=== PATIENT | male | born 1980 | race Caucasian/White ===

== ENCOUNTER 2017-03-16 21:18 | Observation (INO) | payer BC, MEDICAID, OTHER ==
[~2017-03-16] VITALS: Ht 175.3 cm; Wt 70.0 kg
[~2017-03-16 21:18] MED LIST: ACET325S8 PR; DICL-86 PO; IBUP100S PO; TRAM50 PO
[2017-03-16 21:19] VITALS: BP 156/96; PULSE 102; RESP 16; TEMP 99; O2SAT 99
[2017-03-16] MEDS ORDERED: AMIT100T2 PO (22:12)
[2017-03-16] MEDS ORDERED: GABA600T PO (22:12)
[2017-03-16] MEDS ORDERED: CLON.5 PO (22:12)
[2017-03-16] MEDS ORDERED: TRAZ1TAB14 PO (22:12)
[2017-03-16] MEDS ORDERED: LEVE500 PO (22:12)
[2017-03-16] MEDS ORDERED: MORPHINE SULFATE 4 MG/ML INJ IV PUSH ONE (22:30)
[2017-03-16 22:57] LABS: AUTOMATED NEUTROPHIL # 6.2 TH/MM3 (1.8-7.7); BASOPHIL # 0.1 TH/MM3 (0-0.2); BASOPHIL % 0.6 % (0.0-2.0); EOSINOPHIL # 0.1 TH/MM3 (0-0.4); EOSINOPHIL % 1.5 % (0.0-4.0); HEMATOCRIT 35.9 % (39.0-51.0); HEMO FLAGS DIFF FINAL; LYMPH % 20.6 % (9.0-44.0); LYMPHOCYTE # 1.9 TH/MM3 (1.0-4.8); MEAN CELL VOLUME 83.9 FL (80.0-100.0); MEAN CORPUSCULAR HEMOGLOBIN 29.3 PG (27.0-34.0); MEAN CORPUSCULAR HGB CONC 34.9 % (32.0-36.0); MONO % 8.8 % (0.0-8.0); NEUT % 68.5 % (16.0-70.0); PLATELET COUNT 299 TH/MM3 (150-450); RED BLOOD COUNT 4.28 MIL/MM3 (4.50-5.90); WHITE BLOOD COUNT 9.1 TH/MM3 (4.0-11.0)
[2017-03-16 23:04] LABS: BLOOD, URINE NEG (NEG); COMMENT (UR) CULT NOT INDICATED; CULTURE IF INDICATED CULT NOT INDICATED; GLUCOSE,URINE NEG (NEG); KETONE, URINE NEG (NEG); MUCUS URINE FEW /lpf (OCC); NITRITE,URINE NEG (NEG); PH, URINE 6.5 (5.0-8.5); URINE COLOR YELLOW (YELLW/STRAW)
[2017-03-16 23:09] LABS: APTT (PATIENT) 28.8 SEC (24.3-30.1); PROTHROMBIN TIME - PATIENT 10.1 SEC (9.8-11.6)
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
[2017-03-16 23:17] LABS: BICARBONATE 27.4 MEQ/L (21.0-32.0); POTASSIUM 4.2 MEQ/L (3.5-5.1)
--- NOTE | 2017-03-16 23:24 | RADRPT ---
EXAM DATE/TIME: 03/16/2017 22:34 [facility] COMPARISON: No previous studies available for comparison. INDICATIONS : Testicular pain. MEDICAL HISTORY : Seizures. Anxiety. SURGICAL HISTORY : Tonsillectomy. Double hernia repair. ENCOUNTER: Initial ACUITY: 1 week PAIN SCORE: 8/10 LOCATION: Bilateral testicles. MEASUREMENTS: RIGHT TESTICLE: 4.8 x 3.1 x 2.5cm LEFT TESTICLE: 4.8 x 3.0 x 2.3cm FINDINGS: RIGHT TESTICLE: Homogeneous echotexture without intra or extratesticular mass. Blood flow is symmetric and within no rmal limits. No hydrocele or varicocele. Epididymis is within normal limits. LEFT TESTICLE: Homogeneous echotexture without intra or extratesticular mass. Blood flow is symmetric and within no rmal limits. No hydrocele or varicocele. Epididymis is within normal limits. SCROTUM: Within normal limits. CONCLUSION: Normal scrotal ultrasound. No abnormality is identified to explain the pain. Juan Nair MD on March 16, 2017 at 23:21 Board Certified Radiologist. This report was verified electronically.
[2017-03-17 01:00] LABS: CHLAMYDIA PCR NOT DETECTED (NOT DETECT); NEISSERIA PCR NOT DETECTED (NOT DETECT)
--- NOTE | 2017-03-17 01:26 | RADRPT ---
EXAM DATE/TIME: 03/17/2017 00:10 [facility] COMPARISON: No previous studies available for comparison. INDICATIONS : Pain in penis and swelling in scrotum for 3 days after injury. MEDICAL HISTORY : Seizures. SURGICAL HISTORY : Umbilical hernia repair. Tonsillectomy. Bilateral broken arms. ENCOUNTER: Subsequent ACUITY: 3 day PAIN SCORE: 9/10 LOCATION: scrotum. TECHNIQUE: Multiplanar, multisequence magnetic resonance imaging of the pelvis was performed. FINDINGS: At the left base of the pendulous portion of the penis there is a focal disruption of the left latera l aspect of the tunica albuginea. The defect measures approximately 11 mm. There is intermediate T2 a nd heterogeneous T1 signal extending around the corpus cavernosa and abutting the corpus spongiosum i n this area likely representing a hematoma contained by the surrounding fascia. It extends from the 1 : 00 to 6:00 position. The right corpus cavernosa appears intact. Corpus spongiosum does not appear inv olved. Testicles are visualized and demonstrate homogeneous T2 hyperintense signal without a mass. There is trace fluid in the scrotum bilaterally. Prostate gland and bladder demonstrate no abnormality. CONCLUSION: 1. There is focal disruption of the left tunica albuginea of the corpus cavernosum at the base of the penis. The defect measures approximately 11 mm. 2. There is an adjacent hematoma extending around the left corpus cavernosum likely contained by the surrounding fascia. Right corpus cavernosa and corpus spongiosum appear intact. Juan Nair MD on March 17, 2017 at 1:19 Board Certified Radiologist. This report was verified electronically.
[2017-03-17] MEDS ORDERED: SODIUM CHLOR 0.9% 1000 ML INJ 1,000 ML IV SCH (02:33)
[2017-03-17] MEDS ORDERED: MAGNESIUM HYDROXIDE SUSP 30 ML CUP PO PRN (02:45)
[2017-03-17] MEDS ORDERED: SODIUM CHLORIDE 0.9% FLUSH 10 ML FLUSH IV FLUSH PRN (02:45)
[2017-03-17] MEDS ORDERED: LACTULOSE SYRUP 20 GM/30 ML CUP PO PRN (02:45)
[2017-03-17] MEDS ORDERED: ONDANSETRON HCL 4 MG/2 ML VIAL IVP PRN (02:45)
[2017-03-17] MEDS ORDERED: ACETAMINOPHEN 325 MG TAB PO PRN (02:45)
[2017-03-17] MEDS ORDERED: BISACODYL 10 MG SUPP RECTAL PRN (02:45)
[2017-03-17] MEDS ORDERED: SENNOSIDES 8.6 MG TAB PO PRN (02:45)
[2017-03-17] MEDS ORDERED: ACETAMINOPHEN/HYDROcodone 325 MG/5 MG TAB PO PRN (02:45)
[2017-03-17] MEDS: MORPHINE SULFATE 4 MG/ML INJ IV PUSH PRN ×2 (03:19→08:15)
[2017-03-17 03:25] VITALS: BP 123/81; PULSE 85; RESP 16; O2SAT 99
[2017-03-17 04:08] VITALS: BP 136/86; PULSE 108; RESP 16; TEMP 98.6; O2SAT 100
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
[2017-03-17] MEDS ORDERED: GABAPENTIN 400 MG CAP PO SCH (09:00)
[2017-03-17] MEDS ORDERED: levETIRAcetam 500 MG TAB PO SCH (09:00)
[2017-03-17] MEDS ORDERED: clonazePAM 0.5 MG TAB PO SCH (09:00)
[2017-03-17] MEDS ORDERED: SODIUM CHLORIDE 0.9% FLUSH 10 ML FLUSH IV FLUSH SCH (09:00)
[2017-03-17] MEDS ORDERED: DOCUSATE SODIUM 50 MG/SENNA 8.6 MG TAB PO SCH (09:00)
[2017-03-17 09:12] VITALS: BP 141/79; PULSE 100; RESP 20; TEMP 97; O2SAT 97
--- NOTE | 2017-03-17 10:00 | PD.CONS ---
HPI Service Urology Consult Requested By Reason for Consult Penile pain; Fracture? Primary Care Physician No Primary Care Physician Diagnosis: (1) Penile fracture ICD Code: S39.840A - Fracture of corpus cavernosum penis, initial encounter (2) HTN (hypertension) ICD Code: I10 - Essential (primary) hypertension (3) Seizure disorder ICD Code: G40.909 - Epilepsy, unspecified, not intractable, without status epilepticus (4) Tobacco abuse ICD Code: Z72.0 - Tobacco use History of Present Illness 36-year-old male admitted for penile pain with concern for possible penile fracture. Patient reports that 3 nights ago he was engaging in sexual intercourse with his female partner where she was on top. He reports his penis came out and when she came down it hit her hip and had significant pain. He denies hearing any type of popping noise. His erection however remained and he finished the sexual intercourse at that time. Patient reports shortly after this he had some soreness to the penis however no significant swelling. He then went to work for the next 2 days without issue. 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 However last night after he came home from work he noticed significant bruising in his scrotum along with swelling. He denies any difficulty in voiding. It is unclear if he has been able to achieve an erection since the event however he reports erections are painful and he has not engaged in any further sexual activity. No hematuria, no dysuria. No fevers chills nausea or vomiting. Review of Systems ROS Limitations: Clinical Condition Constitutional: DENIES: Fever Endocrine: DENIES: Heat/cold intolerance Eyes: DENIES: Blurred vision Ears, nose, mouth, throat: DENIES: Hearing loss Respiratory: DENIES: Cough Cardiovascular: DENIES: Chest pain Gastrointestinal: DENIES: Abdominal pain Genitourinary: DENIES: Sexual dysfunction, Urinary frequency, Hematuria, Dysuria, Penile Discharge Musculoskeletal: DENIES: Joint pain Hematologic/lymphatic: COMPLAINS OF: Bruising Neurologic: DENIES: Headache Psychiatric: DENIES: Anxiety Except as stated in HPI: all other systems reviewed are Neg Past Family Social History Past Medical History Anxiety, Seizure Disorder and Tobacco Abuse Past Surgical History Hernia Repair, Tonsillectomy Reported Medications Reported Meds & Active Scripts Active Bactrim DS (Sulfamethoxazole-Trimethoprim) 800-160 Mg Tab 1 Tab PO BID Reported Klonopin (Clonazepam) 0.5 Mg Tab 0.5 Mg PO BID Gabapentin 600 Mg Tab 1,200 Mg PO TID Amitriptyline (Amitriptyline HCl) 100 Mg Tab 100 Mg PO HS Keppra (Levetiracetam) 500 Mg Tab 1,000 Mg PO TID Allergies: Coded Allergies: doxycycline (Unverified Allergy, Mild, HIVES, 03/16/17) minocycline (Unverified Allergy, Mild, HIVES, 03/16/17) penicillin G (Unverified Allergy, Mild, HIVES, 03/16/17) tigecycline (Unverified Allergy, Mild, HIVES, 03/16/17) Family History Family history Reviewed and noncontributory to present illness. No h/o DM or CAD Social History One to 2 drinks daily. Smokes 1/2ppd. Negative for drugs Physical Exam Vital Signs Date Time Temp Pulse Resp B/P (MAP) Pulse Ox O2 Delivery O2 Flow Rate FiO2 03/17/17 09:12 97.0 100 20 141/79 (99) 97 03/17/17 04:08 98.6 108 16 136/86 (103) 100 03/17/17 03:39 03/17/17 03:25 85 16 123/81 (95) 99 Room Air 03/16/17 21:19 99.0 102 16 156/96 (116) 99 Room Air Physical Exam GENERAL: This is a well-nourished, well-developed patient, in no apparent distress. SKIN: No rashes, ecchymoses or lesions. Cool and dry. HEAD: Atraumatic. Normocephalic. No temporal or scalp tenderness. EYES: Extraocular motions intact. No scleral icterus. No injection or drainage. ENT: Nose without bleeding, purulent drainage Airway patent. NECK: Trachea midline. No JVD or lymphadenopathy. CARDIOVASCULAR: Normal pulses RESPIRATORY: Nonlabored GASTROINTESTINAL: Abdomen soft, non-tender, nondistended. No hepato-splenomegaly , or palpable masses. No guarding. GENITOURINARY: Circumcised phallus without any edema or swelling of the entire penile shaft. There is some mild swelling of the scrotum with significant ecchymosis and bruising throughout the entire scrotum. Some mild tenderness noted in the inferior portion of the scrotum more so on the right testicle, however bilateral testicles palpable and normal. There is no tenderness along the entire shaft the penis, however there is some mild tenderness in the left inferior base of the penis. MUSCULOSKELETAL: Extremities without clubbing, cyanosis, or edema. NEUROLOGICAL: Awake and alert. . Motor and sensory grossly within normal limits. Normal speech. Lab results reviewed: Yes Laboratory Tests Test 03/16/17 22:30 03/16/17 22:40 Urine Color YELLOW Urine Turbidity CLEAR Urine pH 6.5 Urine Specific [place] 1.012 Urine Protein NEG Urine Glucose (UA) NEG Urine Ketones NEG Urine Occult Blood NEG Urine Nitrite NEG Urine Bilirubin NEG Urine Urobilinogen LESS THAN 2.0 Urine Leukocyte Esterase NEG Urine RBC LESS THAN 1 Urine WBC LESS THAN 1 Urine Mucus FEW Microscopic Urinalysis Comment CULT NOT INDICATED Chlamydia trachomatis DNA (PCR) NOT DETECTED Neisseria gonorrhoeae DNA (PCR) NOT DETECTED White Blood Count 9.1 Red Blood Count 4.28 Hemoglobin 12.5 Hematocrit 35.9 Mean Corpuscular Volume 83.9 Mean Corpuscular Hemoglobin 29.3 Mean Corpuscular Hemoglobin Concent 34.9 Red Cell Distribution Width 13.0 Platelet Count 299 Mean Platelet Volume 7.0 Neutrophils (%) (Auto) 68.5 Lymphocytes (%) (Auto) 20.6 Monocytes (%) (Auto) 8.8 Eosinophils (%) (Auto) 1.5 Basophils (%) (Auto) 0.6 Neutrophils # (Auto) 6.2 Lymphocytes # (Auto) 1.9 Monocytes # (Auto) 0.8 Eosinophils # (Auto) 0.1 Basophils # (Auto) 0.1 CBC Comment DIFF FINAL Differential Comment Prothrombin Time 10.1 Prothromb Time International Ratio 1.0 Activated Partial Thromboplast Time 28.8 Blood Urea Nitrogen 9 Creatinine 0.74 Random Glucose 73 Calcium Level 8.7 Sodium Level 136 Potassium Level 4.2 Chloride Level 103 Carbon Dioxide Level 27.4 Anion Gap 6 Estimat Glomerular Filtration Rate 118 Result Diagram: 03/16/170 03/16/172239 Personally reviewed images: Yes Imaging Last Impressions Pelvis MRI 03/17/17 0000 Signed Impressions: Service Date/Time: Friday, March 17, 2017 00:10 - CONCLUSION: 1. There is focal disruption of the left tunica albuginea of the corpus cavernosum at the base of the penis. The defect measures approximately 11 mm. 2. There is an adjacent hematoma extending around the left corpus cavernosum likely contained by the surrounding fascia. Right corpus cavernosa and corpus spongiosum appear intact. Juan Nair MD Scrotum Ultrasound 03/16/17 0000 Signed Impressions: Service Date/Time: Thursday, March 16, 2017 22:34 - CONCLUSION: Normal scrotal ultrasound. No abnormality is identified to explain the pain. Juan Nair MD Assessment and Plan Problem List: (1) Penile fracture ICD Code: S39.840A - Fracture of corpus cavernosum penis, initial encounter Assessment and Plan Physical exam is not typical for penile fracture. History of the injury is typical event for a penile fracture, however a true complete penile fracture would result in immediate detumescence with immediate significant penile swelling. This was not the case here. However MRI of the pelvis noted a small approximately 1 cm left corporal defect with some hematoma noted around this. Personal review of the MRI did not identify the location of this defect. We discussed penile fracture in great detail. Given the history and the length of time since the injury and the relatively small defect, surgical intervention at this time would likely result in more trauma and would not provide much benefit. We discussed conservative management with scrotal elevation, compression, ice, and refraining from any sexual activity for at least 2 weeks. We also discussed in great detail the possibility of future Peyronie's disease due to scarring of this small defect resulting in some curvature of the penis. Given the size and location of this potential defect this may not occur and may be clinically insignificant. We also discussed the possibility of erectile dysfunction with future difficulties in obtaining and maintaining an erection. Patient understands all the above. All questions were answered in detail. At this time the patient may be discharged with followup in urology clinic in 2 weeks for reevaluation. Augusto Mendosa MD Mar 17, 2017 10:00
[2017-03-17] MEDS ORDERED: BACT800T5 PO (11:23)
--- NOTE | 2017-03-17 11:23 | HHI.DCPOC ---
Discharge Care Plan Goals to Promote Your Health * To prevent worsening of your condition and complications * To maintain your health at the optimal level Directions to Meet Your Goals Take your medications as prescribed Follow your dietary instruction Follow activity as directed Keep your appointments as scheduled Take your immunizations and boosters as scheduled If your symptoms worsen call your PCP, if no PCP go to Urgent Care Center or Emergency Room Smoking is Dangerous to Your Health. Avoid second hand smoke Call the 24-hour hour crisis hotline for domestic abuse at [facility] Mar 17, 2017 11:23
[2017-03-17 11:30] VITALS: BP 139/82; PULSE 89; RESP 18; TEMP 96.2; O2SAT 96
--- NOTE | 2017-03-17 12:10 | HHI.PR ---
Subjective Remarks Follow-up penile fracture 03/17/17-patient seen and examined, complains of penile pain. Denies any hematuria. case discussed with urology Objective Vitals Vital Signs Date Time Temp Pulse Resp B/P (MAP) Pulse Ox O2 Delivery O2 Flow Rate FiO2 03/17/17 11:30 96.2 89 18 139/82 (101) 96 03/17/17 09:12 97.0 100 20 141/79 (99) 97 03/17/17 04:08 98.6 108 16 136/86 (103) 100 03/17/17 03:39 03/17/17 03:25 85 16 123/81 (95) 99 Room Air 03/16/17 21:19 99.0 102 16 156/96 (116) 99 Room Air I/O 03/16/17 03/16/17 03/16/17 03/17/17 03/17/17 03/17/17 07:00 15:00 23:00 07:00 15:00 23:00 Intake Total 960 ml Balance 960 ml Intake IV Total 960 ml # Voids 1 Result Diagram: 03/16/17 2240 03/16/17 2240 Imaging Last Impressions Pelvis MRI 03/17/17 0000 Signed Impressions: Service Date/Time: Friday, March 17, 2017 00:10 - CONCLUSION: 1. There is focal disruption of the left tunica albuginea of the corpus cavernosum at the base of the penis. The defect measures approximately 11 mm. 2. There is an adjacent hematoma extending around the left corpus cavernosum likely contained by the surrounding fascia. Right corpus cavernosa and corpus spongiosum appear intact. Juan Nair MD Scrotum Ultrasound 03/16/17 0000 Signed Impressions: Service Date/Time: Thursday, March 16, 2017 22:34 - CONCLUSION: Normal scrotal ultrasound. No abnormality is identified to explain the pain. Juan Nair MD A/P Problem List: (1) Penile fracture ICD Code: S39.840A - Fracture of corpus cavernosum penis, initial encounter (2) HTN (hypertension) ICD Code: I10 - Essential (primary) hypertension (3) Seizure disorder ICD Code: G40.909 - Epilepsy, unspecified, not intractable, without status epilepticus (4) Tobacco abuse ICD Code: Z72.0 - Tobacco use Assessment and Plan 36-year-old man with 1. Penile Fracture: s/p injury during sexual intercourse 3 days ago, now w/ progressive pain/hematoma, difficulty urinating. Scrotum US normal, MRI Pelvis w/ focal disruption of left tunica albuginea of the corpus cavernosum at base of penis with adjacent hematoma. Case discussed with urology, Dr. Mendosa and recommended discharge home with antibiotics and follow-up in his office next week. Analgesics as needed. 2. HTN: Normotensive 3. Seizure Disorder: Stable. Continue home medications including Keppra. 4. Tobacco Abuse: Pt counselled. Ativan prn if needed, no NicoDerm to avoid vasoconstriction. 5. DVT Prophylaxis: SCD/Teds. Discharge Planning Discharge patient to home Condition on discharge: Improved Regular Diet as tolerated Ad Myrtle activity Rx written:See EMR Follow-up with primary care physician in 1 week Urology next week per Protocol Zi Puente MD Mar 17, 2017 12:10
[2017-03-17] MEDS ORDERED: AMITRIPTYLINE HCL 100 MG TAB PO SCH (21:00)
== END 2017-03-17 13:25 | disposition home or self-care (01) ==
LOC: NEPC 21:18 → NEDA 03-17 02:23 → NEPGCP 03-17 04:02
PROVIDERS: ADMIT Hospitalist; ATTEND Hospitalist
DX: S39.840A Fracture of corpus cavernosum penis, initial encounter (principal); N50.819 Testicular pain, unspecified; I10 Essential (primary) hypertension; G40.909 Epilepsy, unspecified, not intractable, without status epilepticus; F41.9 Anxiety disorder, unspecified; F17.200 Nicotine dependence, unspecified, uncomplicated; X58.XXXA Exposure to other specified factors, initial encounter
CPT/HCPCS: 72195; 76870; 80048; 81001; 85025; 85610; 85730; 86850; 86900; 86901; 87491; 87591; 93975; 96374; 96376; 99285; G0378; J2270; J7030